=== PATIENT | female | born 1985 | race Hispanic/Latino ===

== ENCOUNTER 2020-10-03 20:53 | Emergency (ER) | payer OTHER ==
[2020-10-03] MEDS ORDERED: ORPHENADRINE CITRATE 30 MG/ML ML ONE (21:06)
[2020-10-03] MEDS ORDERED: KETOROLAC TROMETHAMINE 60 MG/2 ML VIAL ONE (21:07)
== END 2020-10-03 23:09 | disposition home or self-care (01) ==
LOC: EDH 20:53
DX: S39.011A Strain of muscle, fascia and tendon of abdomen, initial encounter (principal); S39.012A Strain of muscle, fascia and tendon of lower back, initial encounter; S39.013A Strain of muscle, fascia and tendon of pelvis, initial encounter; S29.012A Strain of muscle and tendon of back wall of thorax, initial encounter; R07.89 Other chest pain; E78.00 Pure hypercholesterolemia, unspecified; V89.2XXA Person injured in unspecified motor-vehicle accident, traffic, initial encounter; Y93.89 Activity, other specified; Y92.488 Other paved roadways as the place of occurrence of the external cause; Y99.8 Other external cause status
CPT/HCPCS: 71046; 72100; 81025; 93005; 96372 ×2; 99285; J1885; J2360